=== PATIENT | female | born 1965 | race Caucasian/White ===

== ENCOUNTER → 2017-08-17 | Outpatient (CLI) | payer OTHER | LOC: BMCIMAGING 12:28 | PROVIDERS: ATTEND Family Medicine | DX: Z12.31 Encounter for screening mammogram for malignant neoplasm of breast (principal) ==

== ENCOUNTER → 2018-06-14 | Outpatient (CLI) | payer OTHER | LOC: BMCIMAGING 08:00 | PROVIDERS: ATTEND Family Medicine | DX: Z86.718 Personal history of other venous thrombosis and embolism (principal) ==

== ENCOUNTER → 2018-07-13 | Day surgery (SDC) | payer OTHER ==
[~2018-07-13] MED LIST: DIAZEPAM 5 MG TAB PO ONE; LIDOCAINE 1% 300 MG/30 ML SDV SC ONE
--- NOTE | 2018-07-13 11:55 | CPIP ---
[f rep st] INVASIVE CARDIAC PROCEDURE DATE OF PROCEDURE: 07/13/2018 INDICATIONS: The patient is a pleasant 53-year-old female with a history of cryptogenic stroke. Pre vious noninvasive monitoring has not indicated any atrial arrhythmias. PROCEDURE: Implantation of a [employer]tr[employer] LINQ. TECHNIQUE: Following informed consent and in the fasting state, the patient was brought to the CVC. The 4th intercostal space immediately to the left of the sternum was identified and marked. The ruddy st was prepped and draped in usual sterile fashion. 2% lidocaine was infiltrated in the skin overlyi ng the 4th intercostal space. Using the #15 blade, a 1 cm incision was made. The LINQ was then inje cted beneath the skin, and the wound closed with 2 sachin. COMPLICATIONS: None. DEVICE INFORMATION: The device is a Medtronic LINQ11, serial number [id number]. /[id number]
== END | disposition home or self-care (01) ==
LOC: FCATH 10:03
PROVIDERS: ATTEND Internal Medicine Cardiovascular Disease
PROC: 0JH632Z Insertion of Monitoring Device into Chest Subcutaneous Tissue and Fascia, Percutaneous Approach (ICD-10-PCS; principal; 2018-07-13)
DX: I69.354 Hemiplegia and hemiparesis following cerebral infarction affecting left non-dominant side (principal)
CPT/HCPCS: 33285; C1764

== ENCOUNTER → 2018-09-27 | Outpatient (CLI) | payer OTHER | LOC: BMCIMAGING 13:35 | PROVIDERS: ATTEND Family Medicine | DX: M25.551 Pain in right hip (principal); M25.552 Pain in left hip ==

== ENCOUNTER → 2018-10-06 | Outpatient (CLI) | payer OTHER | LOC: BMCIMAGING 13:32 | PROVIDERS: ATTEND Family Medicine | DX: M25.552 Pain in left hip (principal) ==